=== PATIENT | female | born 1975 | race Caucasian/White ===

== ENCOUNTER 2018-01-31 02:20 | Emergency (ER) | payer SELFPAY ==
[2018-01-31 02:25] VITALS: BP 137/91
[2018-01-31] MEDS ORDERED: DEXAMETHASONE SOD PHOS INJ 10 MG/1 ML VIAL IM ONE (05:53)
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
[2018-01-31] MEDS ORDERED: BUTALB/ACETAMINOPHEN/CAFFEINE 1 TAB EACH PO ONE (06:16)
== END 2018-01-31 06:30 | disposition home or self-care (01) ==
LOC: ER 02:20
DX: J01.00 Acute maxillary sinusitis, unspecified (principal); R51 Headache; R09.81 Nasal congestion; R05 Cough; R50.9 Fever, unspecified; I10 Essential (primary) hypertension
CPT/HCPCS: 99283; 96372; 87070; 87880; J3490; J1100